=== PATIENT | female | born 1980 | race Two or more races ===

== ENCOUNTER 2018-02-28 12:56 | Emergency (ER) | payer OTHER ==
[~2018-02-28] VITALS: Ht 152.4 cm; Wt 60.0 kg
[2018-02-28 13:01] VITALS: BP 105/60
[2018-02-28] MEDS ORDERED: KETOROLAC 30 MG/1 ML ONE (13:45)
[2018-02-28] MEDS ORDERED: KETOROLAC 30 MG/1 ML IM ONE (14:00)
== END 2018-02-28 14:59 | disposition home or self-care (01) ==
LOC: ED 13:46
DX: S16.1XXA Strain of muscle, fascia and tendon at neck level, initial encounter (principal); M25.511 Pain in right shoulder; V49.59XA Passenger injured in collision with other motor vehicles in traffic accident, initial encounter; Y93.89 Activity, other specified; Y99.8 Other external cause status; Y92.89 Other specified places as the place of occurrence of the external cause
CPT/HCPCS: 72050; 72072; 96372; 99284; J1885